=== PATIENT | female | born 1990 ===

== ENCOUNTER → 2018-09-21 | Outpatient (CLI) | payer BC ==
[~2018-09-21] MED LIST: Cyclobenzaprine5 MG; METO25ER; Mobic15 MG; OMEP20ER; Phentermine HCl15 MG
== END | disposition home or self-care (01) ==
LOC: LAB SHORT 13:53 → LAB 13:53
PROVIDERS: Nurse Practitioner
DX: Z01.419 Encounter for gynecological examination (general) (routine) without abnormal findings (principal)
CPT/HCPCS: G0145

== ENCOUNTER → 2019-12-05 | Outpatient (CLI) | payer BC | LOC: LAB 08:00 → LAB SHORT 08:00 | PROVIDERS: Nurse Practitioner | DX: Z01.419 Encounter for gynecological examination (general) (routine) without abnormal findings (principal) | CPT/HCPCS: G0145 ==

== ENCOUNTER → 2021-03-26 | Outpatient (CLI) | payer BC | END | disposition home or self-care (01) | LOC: LAB SHORT 10:44 | DX: J02.9 Acute pharyngitis, unspecified (principal) | CPT/HCPCS: 87081 ==